=== PATIENT | male | born 1955 | race Caucasian/White ===

== ENCOUNTER 2023-01-08 16:14 | Emergency (ER) | payer OTHER, MEDICARE ==
[~2023-01-08] VITALS: Ht 172.7 cm; Wt 73.5 kg
[2023-01-08 16:23] VITALS: BP_SYST 130; PULSE 80; RESP 20; TEMP 98; O2SAT 99
[2023-01-08] MEDS ORDERED: LIDOCAINE 1% 10 MG/ML, 20 ML MDV SUBCUT ONE (16:30)
[2023-01-08] MEDS ORDERED: BACITRACIN 1 GM OINT TP ONE (17:09)
== END 2023-01-08 17:13 | disposition home or self-care (01) ==
LOC: SED 16:14
DX: S30.842A External constriction of penis, initial encounter (principal); Z79.899 Other long term (current) drug therapy; W49.09XA Other specified item causing external constriction, initial encounter; Y93.89 Activity, other specified; Y92.89 Other specified places as the place of occurrence of the external cause; Y99.8 Other external cause status
CPT/HCPCS: 99283; 96372; J2001